=== PATIENT | male | born 1950 | race Caucasian/White ===

== ENCOUNTER 2019-02-28 11:47 | Inpatient (IN) | payer OTHER ==
[~2019-02-28] VITALS: Ht 170.2 cm; Wt 62.1 kg
[2019-02-28 11:54] VITALS: BP 115/82
[2019-02-28 12:17] LABS: HEMATOCRIT 44.4 % (42.0-52.0); HEMOGLOBIN 15.6 gm/dL (14.0-18.0); MCH 34.2 pg (26.0-34.0); MCHC 35.1 g/dL (28.0-37.0); MCV 97.4 fL (80.0-100.0); MPV 7.5 fl. (7.2-11.1); NUCLEATED RBCS 0 /100WBC; PLATELET COUNT* 341 thou/uL (150-400); RBC 4.56 mil/uL (4.50-6.00); RDW-CV 12.9 % (10.5-14.5)
[2019-02-28 12:26] LABS: CALCIUM 9.7 mg/dL (8.5-10.1); CREATININE 0.9 mg/dL (0.6-1.3); POTASSIUM 4.2 mmol/L (3.5-5.1)
[2019-02-28 12:42] LABS: TOTAL BILIRUBIN 0.3 mg/dL (<0.1-1.0); TOTAL PROTEIN 8.1 g/dL (6.4-8.2)
[2019-02-28 12:43] LABS: ABSOLUTE MONOCYTES 0.3 thou/uL (0.0-1.2); ABSOLUTE NEUTROPHILS 8.7 thou/uL (1.6-8.1); PLATELET ESTIMATE ADEQUATE
[2019-02-28 12:44] LABS: ANISOCYTOSIS 1+; TOXIC GRANULATION 2+
[2019-02-28 12:50] LABS: INFLUENZA A ANTIGEN Negative (Negative); INFLUENZA B ANTIGEN Negative (Negative)
[2019-02-28 14:05] VITALS: BP 135/50
[2019-02-28 14:45] VITALS: BP 129/52
[2019-02-28 15:58] LABS: BE -2.5 mmol/L (-2 to +3); PCO2 41.8 mmHg (35.0-45.0); PO2 60.6 mmHg (75.0-100.0); pH 7.357 (7.340-7.450)
[2019-02-28 16:00] VITALS: BP 119/49
[2019-02-28 19:40] VITALS: BP 106/40
[2019-02-28 20:09] LABS: URINE BILIRUBIN NEGATIVE (Negative); URINE BLOOD NEGATIVE (Negative); URINE CLARITY CLEAR; URINE COLOR YELLOW; URINE GLUCOSE-RANDOM 2+ (Negative); URINE KETONES TRACE (Negative); URINE LEUKOCYTES-REFLEX NEGATIVE (Negative); URINE NITRITE-REFLEX NEGATIVE (Negative); URINE PROTEIN TRACE (Negative)
[2019-03-01] VITALS: BP 108/56
[2019-03-01 04:00] VITALS: BP 111/67; BP 174/97
[2019-03-01 08:00] VITALS: BP 110/43
[2019-03-01 12:30] VITALS: BP 93/60
[2019-03-01 16:20] VITALS: BP 125/55
--- NOTE | 2019-03-01 17:58 | EKG ---
[place] [address] ELECTROCARDIOGRAM REPORT Name: CRISMAE Weber Room: [address] ADM IN [facility]#: [id number] Admission: 02/28/19 Attend Phys: Kimberli Fu Discharge: Date of : 46 Report #: [id number] THIS REPORT FOR: //name// [facility] ED Test Date: 2019-02-28 Test Time: 12:08:37 Pat Name: MAE LYNCH Department: Room: [facility] Gender: M Conductor/Engineer: : 1950 Requested By: Hardik Stark Order Number: [id number] MD: Jeff Ribeiro Measurements Intervals [place] Rate: 91 P: 79 [place]: 167 QRS: -6 QRSD: 88 T: 49 QT: 350 QTc: 431 Interpretive Statements Sinus rhythm Baseline wander in lead(s) I,III,aVL No previous ECG available for comparison Electronically Signed On 03-01-2019 17:57:54 CDT by Jeff Ribeiro [email or web address] <ELECTRONICALLY SIGNED> By: Jeff Ribeiro MD, [facility] 03/01/19 175 120 120 Jeff Ribeiro MD, FAC /EPI
[2019-03-01 19:40] VITALS: BP 133/52
[2019-03-02] VITALS: BP 135/68
[2019-03-02 04:00] VITALS: BP 121/62
[2019-03-02 04:31] LABS: ABSOLUTE LYMPHOCYTES 0.4 thou/uL (0.8-5.3); ABSOLUTE MONOCYTES 0.2 thou/uL (0.0-1.2); BASOPHILS 0.1 %; HEMATOCRIT 35.3 % (42.0-52.0); LYMPHOCYTES 4.4 %; MCH 33.6 pg (26.0-34.0); MCHC 34.6 g/dL (28.0-37.0); MCV 97.2 fL (80.0-100.0); MONOCYTES 2.2 %; MPV 7.6 fl. (7.2-11.1); NUCLEATED RBCS 0 /100WBC; PLATELET COUNT* 326 thou/uL (150-400); POLYS 93.3 %; RBC 3.63 mil/uL (4.50-6.00); RDW-CV 12.8 % (10.5-14.5); WBC 9.6 thou/uL (4.0-11.0)
[2019-03-02 04:51] LABS: HEMOGLOBIN 12.2 gm/dL (14.0-18.0)
[2019-03-02 05:23] LABS: BE 0.8 mmol/L (-2 to +3); PCO2 45.1 mmHg (35.0-45.0); PO2 78.9 mmHg (75.0-100.0); pH 7.383 (7.340-7.450)
[2019-03-02 08:00] VITALS: BP 124/60
[2019-03-02 16:05] VITALS: BP 133/62
[2019-03-02 20:00] VITALS: BP 121/72
[2019-03-03] VITALS (7 sets, daily range): BP systolic 124–152; BP diastolic 57–85
[2019-03-03 05:40] LABS: HEMATOCRIT 35.2 % (42.0-52.0); MCH 33.4 pg (26.0-34.0); MCV 98.1 fL (80.0-100.0); MPV 7.4 fl. (7.2-11.1); RBC 3.58 mil/uL (4.50-6.00); RDW-CV 13.1 % (10.5-14.5); WBC 7.7 thou/uL (4.0-11.0)
[2019-03-03 06:26] LABS: ALBUMIN 2.2 g/dL (3.4-5.0); CALCIUM 8.7 mg/dL (8.5-10.1); CREATININE 0.8 mg/dL (0.6-1.3); TOTAL BILIRUBIN 0.2 mg/dL (<0.1-1.0); TOTAL PROTEIN 5.9 g/dL (6.4-8.2)
[2019-03-04 03:45] VITALS: BP 138/54
[2019-03-04 08:00] VITALS: BP 146/62
--- NOTE | 2019-03-04 08:23 | CON ---
[address] [address] CONSULTATION Name: MAE LYNCH Room: [address] IN M.R.#: [id number] Admission: 02/28/19 Attend Phys: Kimberli Fu Discharge: Date of : 46 Report #: [id number] THIS REPORT FOR: //name// CC: JESSICA physician/PCP You Duarte REQUESTING PHYSICIAN: Dr. Padilla. REASON FOR CONSULTATION: COPD, adrenal mass. DISCUSSION: The patient is a 68-year-old man who does not get any regular medical care. He has not seen a physician in years. He presented to the Emergency Department here several days ago. He has been having trouble with the cough and congestion. He developed some fevers at home as well. He was trying alzp-nyj-vpripmf medication. He was getting more short of breath. With these symptoms and the continued cough, his insisted that he be seen in the ED. According to the patient, he did come to the Emergency Department, was hoping to get a "flu shot" and then return home. He was evaluated in the ED. He was noted to be hypoxic. Chest x-ray was negative for acute findings. He did have a CT angiogram done of his chest, which was negative for pulmonary emboli. However, it did show emphysematous changes. Also had an adrenal nodule noted as well. Given his bronchospasm and hypoxemia, he was admitted and was started on empiric antibiotics, IV steroids, and now receiving breathing treatments. Overall, he is feeling better. His temperatures have improved. He has a long history of tobacco abuse. He smoked at least a pack of cigarettes per day. In the past, upwards of 2 packs. He notes he does not smoke as much since he retired about 5 years ago. He has not seen a physician in years. He is on no home medications at home other than jszl-pna-nfqindx medications. He has not had a flu shot in at least 5 years. He used to get them while he was still working. He believes he did have a Pneumovax probably about 10 years ago. He has had a weight loss. He notes it has been about 15 pounds since he retired. He attributes it to not eating as much. He was having sweats and fevers at home as noted. His appetite has slacked off while he has been acutely ill. He has not had any hemoptysis. He has had cough productive of yellowish to cream-colored mucus. No actual chest pain. No nausea or vomiting. Occasional ingestion and heartburn. He is tending towards constipation. Not noted any blood in his stools. He has never had a colonoscopy or an upper endoscopy, nor has he had his prostate checked. PAST MEDICAL HISTORY: Generally unremarkable as he has not sought medical care for years as noted. However, when he was in his 20s, he apparently stepped on a nail and had a significant cellulitis and a foot infection. Did spend a period of time at [facility]. He had required [place] [address] CONSULTATION Name: MAE LYNCH Room: [address] IN [facility]#: [id number] Admission: 02/28/19 Attend Phys: Kimberli Fu Discharge: Date of : 46 Report #: [id number] and did recover. SOCIAL HISTORY: He is . Retired 5 years ago. He has held a variety of jobs. 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 Because of that, he did sustain a hernia. He has had it intermittently reduced at times, but has never sought surgical correction of that. His also smokes. He had no service. FAMILY HISTORY: Notes he had two sisters of COPD. Father had lung cancer. He notes "all my family smokes." No heart history or history of thromboembolic disease. REVIEW OF SYSTEMS: ROS was done. Note positives above. At times, he is a little tangential and jumping around, needs redirection. It does appear that he is somewhat downplaying some of his issues and problems. Again, he has had the weight loss. No hemoptysis. He is somewhat hard of hearing. He is actually constipated today. He has not noted any blood in his stools. No syncopal episodes. No recent falls. However, he was getting unsteady. With his coughing so hard, it was also interfering with his ability to sleep at night. No lower extremity edema. No palpitations. Otherwise, negative. PHYSICAL EXAMINATION: GENERAL APPEARANCE: An elderly man. He looks older than stated age. Does look chronically ill. He has no respiratory distress at rest. He is able to speak in full sentences. HEENT: Head is normocephalic. Sclerae nonicteric. Mucous membranes do look a little dry. Dentition is fair and he is missing some teeth. NECK: Without any significant adenopathy. Strap muscles well developed. No supraclavicular adenopathy. HEART: Tones are distant, mildly tachycardic. They are regular. No S3 is heard. LUNGS: Reveal breath sounds to be diminished with a prolonged expiratory phase. He has been coughing with deep inspiration. He does have some late expiratory wheezes and a few rhonchi which do not clear with cough. No CVA tenderness. EXTREMITIES: Thin. Radial pulses are present. May have some mild early clubbing noted in his fingers. Lower extremities are negative for any significant edema. SKIN: Warm and dry. Turgor is fair. Does have O2 running via nasal cannula. LABORATORY AND X-RAY FINDINGS: Imaging studies were reviewed. He has no older studies done at this facility. CT scan done of his chest was negative for pulmonary emboli. Some emphysematous changes noted. There is some interstitial thickening noted. No pleural effusions. It does appear that he has an adrenal gland mass on the right side. Radiologist measurements were 3.5 x 2.7 cm. Vascular [place] [address] CONSULTATION Name: MAE LYNCH Room: [address] IN [facility]#: [id number] Admission: 02/28/19 Attend Phys: Kimberli Fu Discharge: Date of : 46 Report #: [id number] His lab studies, arterial blood gas done on admission, he had a pH of 7.36, pCO2 of 42, pO2 of 61, bicarbonate 23 with a carboxyhemoglobin 1.3 with a saturation of 90%. Blood gases done early this morning, pH of 7.38, pCO2 of 45, pO2 of 79, bicarbonate of 26 with a saturation of 98%. White blood cell count 9600, hemoglobin 12.2, hematocrit 35.3, platelets are normal. He did have an admission hemoglobin of 15.6 and hematocrit of 35.3. Blood cultures have been sent. Those results are pending. Urine for legionella and strep pneumonia antigen is still pending. Blood cultures are negative. IMPRESSION: 1. Chronic obstructive pulmonary disease, baseline. I suspect he has severe disease. No definite infiltrates noted on his imaging studies. May have had a viral infection resulting in acute exacerbation and increased cough. 2. Ongoing tobacco abuse. 3. Adrenal mass. Duration of findings unknown. He has not had any kind of regular physicals or imaging studies done in the past. Could be a metastatic focus. It does not appear that he has the density more consistent with a benign adenoma. 4. Ongoing tobacco abuse. RECOMMENDATIONS: 1. We would continue to treat COPD exacerbation with the IV steroids, antibiotics in the form of ceftriaxone and azithromycin, neb treatments with the albuterol and ipratropium bromide every 4 hours. 2. Continue with guaifenesin as needed to try and help mobilize his secretions. 3. In a long-term, it is not clear how willing he will be to have any kind of regular followup. Ideally, we would have establishment with a primary care physician. Get up-to-date with colonoscopies, etc. 4. At some point, may need a biopsy done of the adrenal gland. 5. Smoking cessation. 6. Wean FiO2 as able. 7. Also discussed with the patient. Given his COPD exacerbation at this time, it would not be appropriate to pursue surgical treatment of his hernia. <ELECTRONICALLY SIGNED> By: Zoë Alarcon MD 03/04/19 0823 [id number] Alarcon MD /nt
[2019-03-04 11:51] VITALS: BP 121/64
[2019-03-04] MEDS ORDERED: PREDNISONE 10 M10 MG PO (12:54)
[2019-03-04] MEDS ORDERED: NICOTINE TRANSD14 M1 TRANSDERM (12:54)
[2019-03-04] MEDS ORDERED: AUGMENTIN 875-1 EACH PO (12:54)
[2019-03-04] MEDS ORDERED: VENTOLIN HFA 1818 GM INH (12:54)
[2019-03-04 13:58] VITALS: BP 121/64
[2019-03-04 15:17] VITALS: BP 121/64
== END 2019-03-04 15:15 | disposition home or self-care (01) | DRG 189 ==
LOC: M.ERS 11:47 → M.2W 13:18 → M.TBA-ER 13:18 → M.2W 14:27
PROVIDERS: Emergency Medicine Emergency Medical Services; Family Medicine; ADMIT Internal Medicine
DX: J96.01 Acute respiratory failure with hypoxia (principal); J44.1 Chronic obstructive pulmonary disease with (acute) exacerbation; E27.9 Disorder of adrenal gland, unspecified; J20.9 Acute bronchitis, unspecified; Z23 Encounter for immunization; Z83.6 Family history of other diseases of the respiratory system; Z80.1 Family history of malignant neoplasm of trachea, bronchus and lung; Z83.3 Family history of diabetes mellitus